=== PATIENT | male | born 1995 | race Caucasian/White ===

== ENCOUNTER 2017-12-11 11:29 | Emergency (ER) | END 2017-12-11 18:00 | disposition home or self-care (01) ==

== ENCOUNTER 2017-12-13 11:18 | Emergency (ER) | END 2017-12-13 11:33 | disposition home or self-care (01) ==

== ENCOUNTER 2017-12-20 19:56 | Emergency (ER) | END 2017-12-20 20:23 | disposition home or self-care (01) ==